=== PATIENT | male | born 1975 | race Caucasian/White ===

== ENCOUNTER 2023-08-09 16:58 | Emergency (ER) | payer OTHER, SELFPAY ==
--- NOTE | 2023-08-09 17:00 | ED.EAR ---
HPI - Ear Problem General Chief complaint: Ear Stated complaint: Left Ear Problem Time Seen by Provider: 08/09/23 16:59 Source: patient Mode of arrival: ambulatory Limitations: no limitations History of Present Illness HPI Narrative: Dequan is a 48-year-old female patient presenting to the clinic today with complaints of possible left outer ear infection times 2-3 days. He reports he has had drainage and pain to the top of his left earlobe. No fever or chills. Related Data Allergies Allergy/AdvReac Type Severity Reaction Status Date / Time No Known Allergies Allergy Unverified 02/22/13 13:29 Review of Systems Review of Systems: Pertinent positives per HPI. Patient denies any fever, chills, rash, headache, visual changes, dizziness, cough, shortness of breath, chest pain, palpitations, nausea, vomiting, diarrhea, constipation, abdominal pain, or any urinary issues. PMFSH Comments At the time of my signature, I reviewed and agree with the nursing past medical, surgical, social, and family history. There is no relevant family history pertinent to the patient complaint. Exam Narrative: General: Well-developed, well nourished, in no apparent distress Head: Normocephalic, atraumatic Eyes: Pupils equally round and reactive to light bilaterally, EOM intact, sclera and conjunctive clear, no discharge, lids normal Ears: TMs intact and clear, ear canals clear, no drainage, grossly hearing normal. Redness and crusting to the left upper ear lobe with yellow discharge Nose: Nares patent, no discharge, no inflammation, no sinus tenderness. Mouth: Oral pharynx without lesions or masses, good dentition, MMM. Neck: Supple, trachea midline, no enlargement of anterior or posterior cervical nodes, no thyroid masses or goiter palpable. Cardio: Regular rate and rhythm, s1 and s2 normal, no murmur appreciated. Resp: Clear to auscultation bilaterally, no rhonchi, rales, wheezing or rubs Course Course Emergency Course: Portions of this record may have been created with voice recognition software. Level of Care: Express Care Visit Vital Signs Vital signs: Vital signs reviewed Medical Decision Making MDM Narrative Medical decision making narrative: At the time visit patient is resting comfortably on exam table. I suspect patient has an infection to the left outer upper ear lobe. Will send in prescription for mupirocin cream. Supportive measures were discussed with the patient he voiced understanding of the discharge instructions and agrees to treatment plan. Differential Diagnosis Differential Diagnosis: Otitis media, otitis externa, eustachian tube dysfunction, cerumen impaction, upper respiratory infection Discharge Plan Discharge Clinical Impression: Infection of skin of left ear lobe Patient Disposition: Home, Self-Care Condition: Stable Instructions: Antibiotic Form, Ear Infection (ED) Additional Instructions: Apply mupirocin cream to the affected area twice a day as directed May take Tylenol/Motrin as needed for pain Keep area clean and dry Follow-up with your PCP as needed Prescriptions: New mupirocin 2 % ointment 1 applic topical BID 7 Days Qty: 22 0RF Follow-up/Referrals: Rafael,Dell Ruth MD [Primary Care Provider] - Time of Disposition: 17:14 Quality NIHSS Nursing Documentation ED NIHSS nursing documentation: reviewed/agree
[2023-08-09 17:08] VITALS: BP 154/83; PULSE 93; RESP 16; TEMP 37.1; O2SAT 97
== END 2023-08-09 17:18 | disposition home or self-care (01) ==
PROVIDERS: Emergency Provider Nurse Practitioner Family; PCP Internal Medicine
DX: L08.9 Local infection of the skin and subcutaneous tissue, unspecified (principal)
CPT/HCPCS: 99213; G0463